=== PATIENT | female | born 2000 | race Caucasian/White ===

== ENCOUNTER 2019-01-09 19:35 | Emergency (ER) | payer BC ==
[~2019-01-09] VITALS: Ht 172.7 cm; Wt 63.4 kg
[2019-01-09 19:36] VITALS: BP 122/75
[2019-01-09] MEDS ORDERED: CYCL-1 PO (21:48)
[2019-01-09] MEDS ORDERED: IBUP-1984 PO (21:48)
== END 2019-01-09 22:07 | disposition home or self-care (01) ==
LOC: ER 19:35
DX: M54.6 Pain in thoracic spine (principal); Z88.6 Allergy status to analgesic agent; Z79.1 Long term (current) use of non-steroidal anti-inflammatories (NSAID); Z79.899 Other long term (current) drug therapy; Z98.890 Other specified postprocedural states; X58.XXXA Exposure to other specified factors, initial encounter; Y93.89 Activity, other specified; Y92.89 Other specified places as the place of occurrence of the external cause; Y99.8 Other external cause status
CPT/HCPCS: 99283